=== PATIENT | male | born 1945 | race Two or more races ===

== ENCOUNTER 2024-03-24 15:26 | Inpatient (IN) | payer OTHER, MEDICAID ==
[~2024-03-24] VITALS: Ht 172.7 cm; Wt 76.2 kg
[2024-03-24] MEDS: ASPIRIN 325MG EC TABLET PO NR (16:00)
[2024-03-24] MEDS: NITROGLYCERIN 0.4MG TABLET SL SL NR (16:00)
[2024-03-24 16:11] LABS: BASOPHILS % 0.8 % (0.0-2.0); EOSINOPHILS % 3.8 % (0.0-5.0); HEMOGLOBIN. 10.8 g/dL (14.0-18.0); LYMPHOCYTES % 28.6 % (20.0-50.0); MEAN CORPUSCULAR HEMOGLOBIN 28.9 pg (28.0-32.0); MEAN CORPUSCULAR HGB CONC 32.6 g/dL (31.0-37.0); MEAN CORPUSCULAR VOLUME 88.5 fL (80.0-94.0); MEAN PLATELET VOLUME 8.6 fl (7.4-10.4); MONOCYTES % 7.8 % (2.0-8.0); PLATELET 286 x1000/uL (130-400); RED BLOOD CELL COUNT 3.73 mill/uL (4.7-6.1); WHITE BLOOD COUNT 6.3 x1000/uL (4.5-11.0)
[2024-03-24 16:15] LABS: CHLORIDE 110 mEq/L (98-107); POTASSIUM 4.6 mEq/L (3.5-5.1); SODIUM 141 mEq/L (136-145)
[2024-03-24 16:16] LABS: CALCIUM 9.5 mg/dL (8.7-10.4); CARBON DIOXIDE 26 mEq/L (21-32)
[2024-03-24 16:21] LABS: GLUCOSE 133 mg/dL (70-105); PROTHROMBIN TIME 10.9 sec (9.6-11.0); TROPONIN I HIGH SENSITIVITY 20 ng/L (3.0-53); UREA NITROGEN BLOOD 14 mg/dL (9-23)
[2024-03-24 16:23] LABS: ALANINE AMINOTRANSFERASE 38 IU/L (10-49); ALBUMIN 4.5 g/dL (3.2-4.8); ASPARTATE AMINOTRANSFERASE 58 IU/L (<34); BILIRUBIN DIRECT 0.1 mg/dL (<=3.0); BILIRUBIN TOTAL 0.6 mg/dL (0.1-1.0); PROTEIN TOTAL 6.7 g/dL (6.0-8.3)
[2024-03-24 17:32] LABS: TROPONIN I HIGH SENSITIVITY 19 ng/L (3.0-53)
[2024-03-25] MEDS ORDERED: ACETAMINOPHEN 325MG TABLET PO PRN ×2 (02:00)
[2024-03-25] MEDS ORDERED: ONDANSETRON HCL 4MG/2ML INJ IV PRN (02:00)
[2024-03-25] MEDS ORDERED: IPRATROPIUM/ALBUTEROL 0.5-3(2.5)MG/3ML NEB HHN PRN (02:00)
[2024-03-25] MEDS ORDERED: NITROGLYCERIN 0.4MG TABLET SL SL PRN (02:00)
[2024-03-25] MEDS ORDERED: GUAIFENESIN 200MG/10ML SUGAR FREE UDC PO PRN (02:00)
[2024-03-25] MEDS ORDERED: CLONIDINE 0.1MG TABLET PO PRN (02:00)
[2024-03-25] MEDS ORDERED: MAGNESIUM/ALUMINUM HYDROXIDE/SIMETHICONE 30ML UDC PO PRN (02:00)
[2024-03-25] MEDS: AMLODIPINE 5MG TABLET PO SCH (04:14)
[2024-03-25 05:50] LABS: CLARITY URINE CLEAR (CLEAR); COLOR URINE YELLOW (YELLOW); GLUCOSE URINE NEGATIVE (NEGATIVE); KETONES URINE NEGATIVE (NEGATIVE); LEUKOCYTE ESTERASE URINE NEGATIVE (NEGATIVE); NITRITE URINE NEGATIVE (NEGATIVE); OCCULT BLOOD URINE NEGATIVE (NEGATIVE); PROTEIN URINE NEGATIVE (NEGATIVE); SPECIFIC GRAVITY URINE 1.018 (1.005-1.030)
[2024-03-25 06:06] LABS: *AMPHETAMINES SCREEN URINE NEGATIVE (NEGATIVE); *BARBITURATES SCREEN URINE NEGATIVE (NEGATIVE); *BENZODIAZEPINES SCREEN URINE NEGATIVE (NEGATIVE); *COCAINE SCREEN URINE NEGATIVE (NEGATIVE); METHADONE URINE SCREEN NEGATIVE (NEGATIVE); OPIATES URINE SCREEN NEGATIVE (NEGATIVE)
[2024-03-25 06:07] LABS: CANNABINOID URINE SCREEN NEGATIVE (NEGATIVE); ECSTASY MDMA SCREEN URINE NEGATIVE (NEGATIVE); PHENCYCLIDINE URINE SCREEN NEGATIVE (NEGATIVE)
[2024-03-25 07:52] LABS: CARBON DIOXIDE 29 mEq/L (21-32); CHLORIDE 108 mEq/L (98-107); SODIUM 138 mEq/L (136-145)
[2024-03-25 07:53] LABS: CALCIUM 9.2 mg/dL (8.7-10.4)
[2024-03-25 07:57] LABS: CREATINE KINASE MB FRACTION 3.2 ng/mL (0.5-3.6); IRON 25 ug/dL (65-175)
[2024-03-25 07:58] LABS: CREATININE 0.8 mg/dL (0.6-1.3); GLUCOSE 93 mg/dL (70-105); TRIGLYCERIDE 97 mg/dL (0-150); TROPONIN I HIGH SENSITIVITY 22 ng/L (3.0-53); UREA NITROGEN BLOOD 9 mg/dL (9-23)
[2024-03-25 07:59] LABS: ALANINE AMINOTRANSFERASE 30 IU/L (10-49); ASPARTATE AMINOTRANSFERASE 38 IU/L (<34); LDL CHOLESTEROL 128 mg/dL (5-100)
[2024-03-25 08:00] LABS: ALBUMIN 4.2 g/dL (3.2-4.8); BILIRUBIN TOTAL 0.9 mg/dL (0.1-1.0); CHOLESTEROL 179 mg/dL (<200); HDL CHOLESTEROL 40 mg/dL (>55); PROTEIN TOTAL 6.3 g/dL (6.0-8.3); TOTAL IRON BINDING CAPACITY 385 ug/dl (250-425)
[2024-03-25 08:02] LABS: T4 FREE 0.92 ng/dL (0.89-1.76); THYROID STIMULATING HORMONE 4.92 uIU/mL (0.55-4.78)
[2024-03-25 08:10] LABS: FERRITIN 11 ng/mL (22-322); FOLIC ACID (FOLATE) SERUM > 20.00 ng/mL (>5.38); VITAMIN B12 SERUM 228 pg/mL (211-911)
[2024-03-25] MEDS: PANTOPRAZOLE SODIUM 40 MG/VIAL IV SCH (09:26)
[2024-03-25] MEDS: POLYETHYLENE GLYCOL 3350 (17GM) 1 DOSE PACK PO SCH (09:26)
[2024-03-25] MEDS: ASPIRIN 81MG EC TABLET PO SCH (09:27)
[2024-03-25] MEDS: ENOXAPARIN 40MG/0.4ML SYR SUBCUT SCH (09:28)
[2024-03-25 10:24] LABS: BASOPHILS % 0.7 % (0.0-2.0); HEMATOCRIT. 34.5 % (42.0-52.0); HEMOGLOBIN. 11.2 g/dL (14.0-18.0); MEAN CORPUSCULAR HEMOGLOBIN 29.1 pg (28.0-32.0); MEAN CORPUSCULAR HGB CONC 32.6 g/dL (31.0-37.0); MEAN CORPUSCULAR VOLUME 89.1 fL (80.0-94.0); MEAN PLATELET VOLUME 9.5 fl (7.4-10.4); MONOCYTES % 7.3 % (2.0-8.0); PLATELET 286 x1000/uL (130-400); RED BLOOD CELL COUNT 3.87 mill/uL (4.7-6.1); RED CELL DISTRIBUTION WIDTH 13.9 % (11.6-14.6); WHITE BLOOD COUNT 5.6 x1000/uL (4.5-11.0)
[2024-03-25 17:51] VITALS: BP 152/88; PULSE 66; RESP 17; TEMP 97.9
[2024-03-25 18:29] VITALS: BP 152/88; PULSE 66; RESP 16; TEMP 97.9
[2024-03-25 20:00] VITALS: BP 135/72; PULSE 77; RESP 19; TEMP 98.6
[2024-03-25 21:59] LABS: CREATINE KINASE MB FRACTION 3.1 ng/mL (0.5-3.6)
[2024-03-26] VITALS: BP 134/113; PULSE 69; RESP 15; TEMP 97.6
[2024-03-26 04:00] VITALS: PULSE 65; RESP 14; TEMP 98.6
[2024-03-26] MEDS ORDERED: DEXTROSE 50% WATER 50ML SYRINGE IV PRN (04:15)
[2024-03-26 06:05] VITALS: BP 134/83; PULSE 67; RESP 15
[2024-03-26] MEDS: BLOOD SUGAR DIAGNOSTIC STRIP TEST SCH (06:09)
[2024-03-26 07:08] LABS: CHLORIDE 105 mEq/L (98-107); POTASSIUM 4.7 mEq/L (3.5-5.1); SODIUM 138 mEq/L (136-145)
[2024-03-26 07:09] LABS: CALCIUM 9.8 mg/dL (8.7-10.4); CARBON DIOXIDE 27 mEq/L (21-32)
[2024-03-26 07:14] LABS: GLUCOSE 106 mg/dL (70-105); UREA NITROGEN BLOOD 12 mg/dL (9-23)
[2024-03-26 07:20] LABS: BASOPHILS % 0.8 % (0.0-2.0); EOSINOPHILS % 4.3 % (0.0-5.0); HEMATOCRIT. 36.2 % (42.0-52.0); HEMOGLOBIN. 11.6 g/dL (14.0-18.0); LYMPHOCYTES % 36.4 % (20.0-50.0); MEAN CORPUSCULAR HEMOGLOBIN 28.4 pg (28.0-32.0); MEAN CORPUSCULAR HGB CONC 32.1 g/dL (31.0-37.0); MEAN CORPUSCULAR VOLUME 88.5 fL (80.0-94.0); MEAN PLATELET VOLUME 8.9 fl (7.4-10.4); MONOCYTES % 9.8 % (2.0-8.0); NEUTROPHILS % 48.7 % (40.0-76.0); PLATELET 293 x1000/uL (130-400); RED BLOOD CELL COUNT 4.09 mill/uL (4.7-6.1); RED CELL DISTRIBUTION WIDTH 13.6 % (11.6-14.6); WHITE BLOOD COUNT 6.4 x1000/uL (4.5-11.0)
[2024-03-26 08:00] VITALS: BP 136/79; PULSE 60; RESP 20; TEMP 98
[2024-03-26 10:35] LABS: PHOSPHORUS 4.1 mg/dL (2.5-4.9)
[2024-03-26] MEDS: NITROGLYCERIN SPRAY/4.9GM CAN TL NR (11:19)
[2024-03-26] MEDS ORDERED: IOHEXOL-350 100 ML BOTTLE ONE (12:07)
[2024-03-26] MEDS ORDERED: HEPARIN 5000 UNITS/ML VIAL IV PRN ×2 (13:30)
[2024-03-26] MEDS: HEPARIN 5000 UNITS/ML VIAL IV SCH (15:49)
[2024-03-26 16:00] VITALS: BP 122/80; PULSE 58; RESP 13; TEMP 98.2
[2024-03-26] MEDS: HEPARIN 25,000 UNITS PREMIX 250 ML IV SCH (16:06)
[2024-03-26 20:00] VITALS: BP 122/80; PULSE 66; RESP 16; TEMP 98.2
[2024-03-26] MEDS: ATORVASTATIN CALCIUM 40MG TABLET PO SCH (20:23)
[2024-03-27] VITALS: BP 125/80; PULSE 58; RESP 15; TEMP 98.6
[2024-03-27 04:00] VITALS: BP 108/55; PULSE 66; RESP 18
[2024-03-27] MEDS ORDERED: HEPARIN 1000 UNITS/ML 10ML ONE (07:43)
[2024-03-27] MEDS ORDERED: LIDOCAINE HCL/PF 1% 10 MG/ML 5ML VIAL ONE (07:43)
[2024-03-27] MEDS ORDERED: VERAPAMIL HCL 2.5 MG/1 ML 2ML VIAL IV ONE (07:43)
[2024-03-27] MEDS ORDERED: IODIXANOL 320MG/ML 100 ML BOTTLE IV ONE ×3 (07:44→10:03)
[2024-03-27 08:00] VITALS: BP 114/67; PULSE 66; RESP 14; TEMP 98.7
[2024-03-27] MEDS ORDERED: FENTANYL CITRATE/PF 50MCG/ML 2ML VIAL ONE (08:28)
[2024-03-27] MEDS ORDERED: MIDAZOLAM HCL 2 MG/2 ML VIAL ONE (08:28)
[2024-03-27] MEDS ORDERED: DIPHENHYDRAMINE 50MG/ML VIAL ONE (08:29)
[2024-03-27 08:51] LABS: CHLORIDE 104 mEq/L (98-107); POTASSIUM 4.7 mEq/L (3.5-5.1); SODIUM 137 mEq/L (136-145)
[2024-03-27 08:52] LABS: BASOPHILS % 0.7 % (0.0-2.0); CALCIUM 9.4 mg/dL (8.7-10.4); CARBON DIOXIDE 28 mEq/L (21-32); HEMOGLOBIN. 11.9 g/dL (14.0-18.0); LYMPHOCYTES % 32.3 % (20.0-50.0); MEAN CORPUSCULAR HEMOGLOBIN 28.4 pg (28.0-32.0); MEAN CORPUSCULAR HGB CONC 32.2 g/dL (31.0-37.0); MEAN CORPUSCULAR VOLUME 88.4 fL (80.0-94.0); MEAN PLATELET VOLUME 8.9 fl (7.4-10.4); MONOCYTES % 8.8 % (2.0-8.0); NEUTROPHILS % 55.2 % (40.0-76.0); PLATELET 291 x1000/uL (130-400); RED BLOOD CELL COUNT 4.18 mill/uL (4.7-6.1); RED CELL DISTRIBUTION WIDTH 13.8 % (11.6-14.6)
[2024-03-27 08:57] LABS: CREATININE 0.9 mg/dL (0.6-1.3); GLUCOSE 116 mg/dL (70-105); UREA NITROGEN BLOOD 14 mg/dL (9-23)
[2024-03-27] MEDS ORDERED: LIDOCAINE HCL 1% 20ML VIAL ONE (09:18)
[2024-03-27] MEDS ORDERED: ATROPINE SULFATE 1MG/10ML SYR ONE (09:24)
[2024-03-27] MEDS: SODIUM CHLORIDE 0.45% 500 ML IV ONE (10:30)
[2024-03-27] MEDS ORDERED: ACETAMINOPHEN 325MG TABLET PO PRN (10:30)
[2024-03-27] MEDS ORDERED: ATROPINE SULFATE 1MG/10ML SYR IV PRN (10:30)
[2024-03-27] MEDS: FAMOTIDINE 20MG/2ML VIAL IV SCH (11:43)
[2024-03-27 12:00] VITALS: BP 125/75; PULSE 62; RESP 23; TEMP 98.4
[2024-03-27 16:00] VITALS: PULSE 105; RESP 20; TEMP 98
[2024-03-27 20:00] VITALS: BP 121/91; PULSE 91; RESP 14; TEMP 98.3
[2024-03-27] MEDS: ATORVASTATIN CALCIUM 40MG TABLET PO SCH (21:51)
[2024-03-28 06:00] VITALS: BP 132/64; PULSE 82; RESP 16; TEMP 97.8
[2024-03-28 07:41] LABS: BASOPHILS % 0.2 % (0.0-2.0); EOSINOPHILS % 2.7 % (0.0-5.0); HEMATOCRIT. 34.7 % (42.0-52.0); HEMOGLOBIN. 11.4 g/dL (14.0-18.0); LYMPHOCYTES % 20.2 % (20.0-50.0); MEAN CORPUSCULAR HEMOGLOBIN 28.6 pg (28.0-32.0); MEAN CORPUSCULAR HGB CONC 32.7 g/dL (31.0-37.0); MEAN CORPUSCULAR VOLUME 87.4 fL (80.0-94.0); MEAN PLATELET VOLUME 8.9 fl (7.4-10.4); MONOCYTES % 10.2 % (2.0-8.0); NEUTROPHILS % 66.7 % (40.0-76.0); PLATELET 278 x1000/uL (130-400); RED BLOOD CELL COUNT 3.97 mill/uL (4.7-6.1); RED CELL DISTRIBUTION WIDTH 13.9 % (11.6-14.6); WHITE BLOOD COUNT 8.5 x1000/uL (4.5-11.0)
[2024-03-28 07:44] LABS: POTASSIUM 4.5 mEq/L (3.5-5.1)
[2024-03-28 07:45] LABS: CALCIUM 9.4 mg/dL (8.7-10.4)
[2024-03-28 07:50] LABS: CREATININE 1.2 mg/dL (0.6-1.3)
[2024-03-28 08:00] VITALS: BP 119/74; PULSE 75; RESP 17; TEMP 98.4
[2024-03-28] MEDS: CLOPIDOGREL 75MG TABLET PO SCH (09:13)
[2024-03-28] MEDS: AMLODIPINE 10MG TABLET PO SCH (09:13)
[2024-03-28] MEDS ORDERED: CLOP-31 PO (15:00)
[2024-03-28] MEDS ORDERED: AMLO10TA80 PO (15:00)
[2024-03-28] MEDS ORDERED: FAMO-135 PO (15:00)
[2024-03-28] MEDS ORDERED: LIP40 PO (15:00)
[2024-03-28] MEDS ORDERED: ASPI-1406 PO (15:00)
[2024-03-28] MEDS ORDERED: NITR0.4T49 SL ×2 (15:00→15:04)
[2024-03-28] MEDS ORDERED: METO25TA6 PO (15:00)
[2024-03-28 17:40] VITALS: BP 144/83; PULSE 88; TEMP 98.2; O2SAT 98
[2024-03-28] MEDS ORDERED: METOPROLOL TARTRATE 25MG TABLET PO SCH (21:00)
== END 2024-03-28 18:56 | disposition home or self-care (01) | DRG 191 ==
LOC: ER 15:26 → MICUSO 19:00 → EDBEDREQTM 19:04 → EDBEDREQ 19:04 → 5WST 03-25 13:51 → 3WST 03-25 18:37
PROVIDERS: ADMIT Hospitalist; ATTEND Hospitalist
PROC: B211YZZ Fluoroscopy of Multiple Coronary Arteries using Other Contrast (ICD-10-PCS; principal; 2024-03-27)
PROC: 4A023N7 Measurement of Cardiac Sampling and Pressure, Left Heart, Percutaneous Approach (ICD-10-PCS; 2024-03-27)
PROC: B41FYZZ Fluoroscopy of Right Lower Extremity Arteries using Other Contrast (ICD-10-PCS; 2024-03-27)
PROC: B410YZZ Fluoroscopy of Abdominal Aorta using Other Contrast (ICD-10-PCS; 2024-03-27)
DX: I25.110 Atherosclerotic heart disease of native coronary artery with unstable angina pectoris (principal); I24.9 Acute ischemic heart disease, unspecified; K76.0 Fatty (change of) liver, not elsewhere classified; I25.82 Chronic total occlusion of coronary artery; D64.9 Anemia, unspecified; E78.5 Hyperlipidemia, unspecified; I10 Essential (primary) hypertension; K21.9 Gastro-esophageal reflux disease without esophagitis; Z66 Do not resuscitate; R74.01 Elevation of levels of liver transaminase levels; K80.20 Calculus of gallbladder without cholecystitis without obstruction; I35.0 Nonrheumatic aortic (valve) stenosis; K44.9 Diaphragmatic hernia without obstruction or gangrene; Z20.822 Contact with and (suspected) exposure to COVID-19; I70.0 Atherosclerosis of aorta; Z95.1 Presence of aortocoronary bypass graft; Z88.0 Allergy status to penicillin; Z90.49 Acquired absence of other specified parts of digestive tract; Z91.148 Patient's other noncompliance with medication regimen for other reason; Z79.899 Other long term (current) drug therapy; Z79.82 Long term (current) use of aspirin; Z79.02 Long term (current) use of antithrombotics/antiplatelets
CPT/HCPCS: 36415; 71045; 75571; 80048; 80053; 80061; 80076; 80305; 81003; 82553; 82607; 82728; 82746; 82962; 83036; 83540; 83550; 83735; 84100; 84439; 84443; 84484; 85025; 85347; 87426; 93005; 93458; 93970; 97162; 97166; 99291; C1760; C1769; C1887; C1893; J0461; J1200; J1644; J1650; J2250; J2470; J3010; J3490; Q9967